=== PATIENT | female | born 1980 | race Caucasian/White ===

== ENCOUNTER 2019-12-30 13:42 | Emergency (ER) | payer OTHER, SELFPAY ==
[2019-12-30 13:50] VITALS: BP 110/63; PULSE 105; RESP 14; TEMP 36.8; O2SAT 99
--- NOTE | 2019-12-30 13:53 | ED.URI ---
HPI - URI/Sore Throat General Chief Complaint: Upper Respiratory Infection Stated Complaint: chest discomfort/fever/sore throat Time Seen by Provider: 12/30/19 14:15 Source: patient and RN notes reviewed Limitations: no limitations History of Present Illness HPI Narrative: This is a 39 years old female presented office for evaluation of cough for 5 days.Cough is very troublesome, associated with high fever at night, body ache,Stuffy nose and sore throat.She has been taking Mucinex for her symptoms with no relief. She is smoke a pack a day. Related Data Home Medications Medication Instructions Recorded Confirmed buprenorphine-naloxone [Suboxone] 1 film BUCCAL DAILY 11/23/19 12/30/19 omeprazole 20 mg PO DAILY 11/23/19 12/30/19 sertraline 100 mg PO DAILY 11/23/19 12/30/19 trazodone 100 mg PO HS PRN 11/23/19 12/30/19 Allergies Allergy/AdvReac Type Severity Reaction Status Date / Time Penicillins Allergy Unknown Unknown Verified 12/30/19 14:03 Review of Systems Review of Systems: Narrative: CONSTITUTIONAL:Reports fever, achy EYES: Denies visual changes ENT: Reports rhinorrhea, congestion, sore throat. Denies otalgia. CARDIOVASCULAR: Denies chest pain RESPIRATORY: Reports cough with chest tightness. GASTROINTESTINAL: Denies abdominal pain, nausea, vomiting, diarrhea. GENITOURINARY: Denies urinary symptoms SKIN: Denies rash MUSCULOSKELETAL: Denies acute back pain, joint pain, or myalgia. NEUROLOGIC: Denies numbness, or focal weakness. [facility] Past Medical History Medical History (Updated 12/30/19 @ 14:31 by FAUSTINO Julian) Anxiety and depression HLD (hyperlipidemia) HTN (hypertension) Inguinal hernia Surgical History Surgical History (Updated 12/30/19 @ 13:55 by FAUSTINO Julian) Hx of tubal ligation Social History Social History (Updated 12/30/19 @ 14:29 by FAUSTINO Julian) Smoking packs per day: 1 Smoking cigarettes per day: 20.0 Smoking status: Current every day smoker Comments At time of signature, I agree with nursing past medical, surgical, social and family history. There is no relevant family history pertinent to the presenting complaint. Exam Narrative: Exam Narrative: GENERAL: This is a well-nourished, well-developed patient, in no apparent distress. EYES: Sclera clear/white. Vision is grossly intact. EARS: External ears normal, auditory canals clear and without drainage, TMs normal without perforation. Hearing grossly intact. NOSE: External nose normal with no obvious nasal discharge, nares without redness, no rhinorrhea. THROAT: Mucous membranes moist, posterior pharynx clear. NECK: Neck supple, non-tender without lymphadenopathy, masses or thyromegaly. CARDIOVASCULAR: Regular rate and rhythm without murmurs, gallops, or rubs. RESPIRATORY: Diminished breath sounds noted throughout, with cough noted during inspiration and expiration. Breath sounds equal bilaterally. No wheezes, rales, or rhonchi. GASTROINTESTINAL: Abdomen soft, non-tender, nondistended. Bowel sounds are active. No hepato-splenomegaly, or palpable masses. No guarding. SKIN: warm, intact with no suspicious lesions or rash, good texture and turgor. NEURO: awake, alert, and oriented to person, place and time. There were no obvious focal neurologic abnormalities. Steady gait Mine Coma Scale Eye Opening: Spontaneous 4 Mine Coma Scale Motor: Obeys Commands 6 Bond Coma Scale Verbal: Oriented 5 Course Vital Signs Vital signs: Vital Signs Temperature 98.2 F 12/30/19 13:50 Pulse Rate 105 H 12/30/19 13:50 Respiratory Rate 14 12/30/19 13:50 Blood Pressure 110/63 12/30/19 13:50 Pulse Oximetry 99 12/30/19 13:50 Temperature 98.2 F 12/30/19 13:50 Pulse Rate 105 H 12/30/19 13:50 Respiratory Rate 14 12/30/19 13:50 Blood Pressure 110/63 12/30/19 13:50 Pulse Oximetry 99 12/30/19 13:50 MDM - URI/Sore Throat MDM Narrative Medical decision making narrative: Discharg
== END 2019-12-30 14:37 | disposition home or self-care (01) ==
PROVIDERS: Emergency Provider Nurse Practitioner
DX: J06.9 Acute upper respiratory infection, unspecified (principal); R05 Cough; F41.9 Anxiety disorder, unspecified; E78.5 Hyperlipidemia, unspecified; I10 Essential (primary) hypertension; F17.290 Nicotine dependence, other tobacco product, uncomplicated
CPT/HCPCS: 99213; G0463

== ENCOUNTER 2020-01-28 15:02 | Emergency (ER) | payer OTHER, SELFPAY ==
[2020-01-28 15:34] VITALS: BP 118/82; PULSE 96; RESP 16; TEMP 36.6; O2SAT 99
--- NOTE | 2020-01-28 16:38 | ED.GENADULT ---
HPI - General Adult General Chief complaint: Wound/Laceration Stated complaint: injury Time Seen by Provider: 01/28/20 16:38 Source: patient Mode of arrival: ambulatory Limitations: no limitations History of Present Illness HPI narrative: 39-year-old female patient presents to the [facility] with complaints of a laceration to the left fourth finger that occurred approximately 12 noon today. Patient states that she cut it on a coffee cup today. Patient unsure of when her last tetanus shot was. Denies any numbness or tingling to the fingertip. Related Data Home Medications Medication Instructions Recorded Confirmed buprenorphine-naloxone [Suboxone] 1 film BUCCAL DAILY 11/23/19 01/28/20 omeprazole 20 mg PO DAILY 11/23/19 01/28/20 sertraline 100 mg PO DAILY 11/23/19 01/28/20 trazodone 100 mg PO HS PRN 11/23/19 01/28/20 albuterol sulfate [ProAir HFA] 1 puff INHALATION Q4-6H PRN 01/28/20 Allergies Allergy/AdvReac Type Severity Reaction Status Date / Time Penicillins Allergy Unknown Unknown Verified 12/30/19 14:03 Review of Systems Review of Systems: Narrative: CONSTITUTIONAL: Denies fever, chills, or sweats. EYES: Denies visual changes, redness, or discharge. ENT: Denies rhinorrhea, congestion, sore throat, or otalgia. CARDIOVASCULAR: Denies chest pain, palpitations, or edema. RESPIRATORY: Denies cough or dyspnea. GASTROINTESTINAL: Denies abdominal pain, nausea, vomiting, or diarrhea. GENITOURINARY: Denies dysuria or hematuria. SKIN: Denies rash or itching. Positive laceration to left fourth finger MUSCULOSKELETAL: Denies back pain, joint pain, or myalgia. NEUROLOGIC: Denies headache, numbness, or weakness. PSYCHIATRIC: Denies anxiety or depression. [facility] Past Medical History Medical History Anxiety and depression HLD (hyperlipidemia) HTN (hypertension) Inguinal hernia Surgical History Surgical History Hx of tubal ligation Social History Social History Smoking packs per day: 1 Smoking cigarettes per day: 20.0 Smoking status: Current every day smoker Comments At the time of my signature I agree with nursing past medical history, surgical, social, and family history. There is no relevant family history pertinent to the presenting complaint. Exam Narrative: Exam Narrative: GENERAL: Well-appearing, well-nourished, and in no acute distress. HEAD: Normocephalic, atraumatic. EYES: PERRLA and EOMI. ENT: Nares clear, no rhinorrhea or epistaxis. Mucous membranes moist. NECK: Supple. No lymphadenopathy CHEST: Clear to auscultation. No respiratory distress. HEART: Regular rate and rhythm. No murmur heard. Normal peripheral pulses. ABDOMEN: Soft, nontender, nondistended, normal active bowel sounds. EXTREMITIES: Normal range of motion. No edema. SKIN: Warm, dry, no rash. Patient has slight avulsion/laceration noted to the left fourth finger over the lateral side of the PIP joint. Bleeding is controlled at this time. Patient does have excellent range of motion to the finger with good sensation. NEURO: No focal deficits. Alert and oriented x3. Course Vital Signs Vital signs: Vital Signs Temperature 36.6 C 01/28/20 15:34 Pulse Rate 96 01/28/20 15:34 Respiratory Rate 16 01/28/20 15:34 Blood Pressure 118/82 01/28/20 15:34 Pulse Oximetry 99 01/28/20 15:34 Temperature 36.6 C 01/28/20 15:34 Pulse Rate 96 01/28/20 15:34 Respiratory Rate 16 01/28/20 15:34 Blood Pressure 118/82 01/28/20 15:34 Pulse Oximetry 99 01/28/20 15:34 Vital signs reviewed. Procedures Laceration Laceration 1: Date: 01/28/20 Time: 16:43 Site: hand (Fourth finger) Side (If applicable): left Size (cm): 2 Description: flap Depth: simple, single layer Local Anesthetic: lidocaine 1% Am
[2020-01-28] MEDS: TETANUS,DIPHTHERIA,AC PERTUSSIS ADULT 0.5 ML (ADACEL) IM (17:15)
== END 2020-01-28 17:32 | disposition home or self-care (01) ==
PROVIDERS: Emergency Provider Nurse Practitioner Family
DX: S61.215A Laceration without foreign body of left ring finger without damage to nail, initial encounter (principal); W26.8XXA Contact with other sharp object(s), not elsewhere classified, initial encounter; Z23 Encounter for immunization; F17.210 Nicotine dependence, cigarettes, uncomplicated; F41.9 Anxiety disorder, unspecified; F32.9 Major depressive disorder, single episode, unspecified; E78.5 Hyperlipidemia, unspecified; I10 Essential (primary) hypertension
CPT/HCPCS: 12001; 90471; 90715; 99213; G0463

== ENCOUNTER 2020-05-30 19:37 | Emergency (ER) | payer OTHER, SELFPAY ==
[2020-05-30 19:40] VITALS: BP 123/79; PULSE 100; RESP 16; TEMP 36.9; O2SAT 100
--- NOTE | 2020-05-30 19:51 | ED.BACK ---
HPI - Back Pain/Injury General Chief Complaint: Back Pain/Injury Stated Complaint: back pain Time Seen by Provider: 05/30/20 19:51 Source: patient Mode of arrival: ambulatory Limitations: no limitations History of Present Illness HPI Narrative: Geeta Tabares is a 39 yo female with a H opiate addiction who comes to [facility] for mid thoracic right back pain. Neck pain started 2 weeks ago when helping her toilet while they are remodeling her house and has had issues with pain since then. Over the weekend is gotten much worse she says she has a knot in her right thoracic area that makes it difficult for her to sit up or lay down. 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 EYES: Denies visual changes, redness, discharge. ENT: Denies rhinorrhea, congestion, sore throat, otalgia. CARDIOVASCULAR: Denies chest pain, palpitations, edema. RESPIRATORY: Denies dyspnea, wheezing, cough GASTROINTESTINAL: Denies abdominal pain, nausea, vomiting, diarrhea. GENITOURINARY: Denies dysuria, hematuria, abnormal discharge SKIN: Denies rash or itching. NEUROLOGIC: Denies numbness, or focal weakness. PSYCHIATRIC: Denies anxiety or depression. Right-sided thoracic back PMFSH Past Medical History Medical History Anxiety and depression HLD (hyperlipidemia) HTN (hypertension) Inguinal hernia Opiate addiction Surgical History Surgical History Hx of tubal ligation Family History Family History Other Heart disease Hypertension Social History Social History Smoking packs per day: 1 Smoking cigarettes per day: 20.0 Smoking status: Current every day smoker Comments At time of signature, I agree with nursing past medical, surgical, social and family history. There is no relevant family history pertinent to the presenting complaint. Exam Narrative: Exam Narrative: GENERAL: This is a well-nourished, well-developed patient, in mild distress. HEAD: normocephalic, atraumatic. EYES: PERRL. Sclera clear/white. Vision is grossly intact. EARS: External ears normal,. Hearing grossly intact. NOSE: External nose normal without nasal discharge, nares without redness, no rhinorrhea. THROAT: Mucous membranes moist, NECK: Neck supple, non-tender CARDIOVASCULAR: Regular rate and rhythm without murmurs, gallops, or rubs. RESPIRATORY: Clear to auscultation. Breath sounds equal bilaterally. No wheezes, rales, or rhonchi. GASTROINTESTINAL: Abdomen soft,, SKIN: warm, intact with no suspicious lesions or rash, good texture and turgor. NEURO: awake, alert, and oriented to person, place and time. There were no obvious focal neurologic abnormalities. Steady gait EXTREMITIES: Normal range of motion. Able to lift arms but pain with twisting or movement forward BACK:tender without deformity-spasm below right scapula Course Course Emergency Course: Started on baclofen and prednisone Work note for in the morning Follow-up with PCP Vital Signs Vital signs: Vital Signs Temperature 98.5 F 05/30/20 19:40 Pulse Rate 100 05/30/20 19:40 Respiratory Rate 16 05/30/20 19:40 Blood Pressure 123/79 05/30/20 19:40 Pulse Oximetry 100 05/30/20 19:4
== END 2020-05-30 20:08 | disposition home or self-care (01) ==
PROVIDERS: Emergency Provider Nurse Practitioner; PCP Internal Medicine
DX: M54.6 Pain in thoracic spine (principal); F17.210 Nicotine dependence, cigarettes, uncomplicated; F41.9 Anxiety disorder, unspecified; F32.9 Major depressive disorder, single episode, unspecified; E78.5 Hyperlipidemia, unspecified; I10 Essential (primary) hypertension
CPT/HCPCS: 99213; G0463

== ENCOUNTER 2020-06-03 15:24 | Emergency (ER) | payer OTHER, SELFPAY ==
--- NOTE | ~2020-06-03 | XR_ITS ---
EXAMINATION: XR shoulder RT min 2V DATE: 06/03/2020 16:23 INDICATION: Right shoulder pain. TECHNIQUE: 4 views of right shoulder were obtained. COMPARISON: None. FINDINGS: Bone alignment is normal. No fracture. Joint spaces are well maintained. IMPRESSION: 1. Normal right shoulder. Reviewed, dictated and finalized at location A. IMPRESSION: 1. Normal right shoulder.
--- NOTE | 2020-06-03 15:36 | ED.BACK ---
HPI - Back Pain/Injury General Chief Complaint: Back Pain/Injury Stated Complaint: back pain Time Seen by Provider: 06/03/20 15:45 Source: patient Mode of arrival: ambulatory Limitations: no limitations History of Present Illness HPI Narrative: Geeta Tabares is a 39 yo female with a PMH of opiate addiction now on suboxone who returns now for R idurated area that is below the area treated on Sunday for R thoracic muscle spasm. Was given baclofen and medrol dose pack then but states that this area is lower and did not discuss on last visit. Is here for additional treatment and Xray of R shoulder. Original injury was two and a half weeks ago while carrying a toilet while helping remodel at home. 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 Related Data Home Medications Medication Instructions Recorded Confirmed buprenorphine-naloxone [Suboxone] 1 film BUCCAL DAILY 11/23/19 06/03/20 omeprazole 20 mg PO DAILY 11/23/19 06/03/20 sertraline 100 mg PO DAILY 11/23/19 06/03/20 trazodone 100 mg PO HS PRN 11/23/19 06/03/20 Allergies Allergy/AdvReac Type Severity Reaction Status Date / Time Penicillins Allergy Unknown Unknown Verified 06/03/20 16:01 Review of Systems Review of Systems: Narrative: CONSTITUTIONAL: Denies fever, chills, sweats. EYES: Denies visual changes, redness, discharge. ENT: Denies rhinorrhea, congestion, sore throat, otalgia. CARDIOVASCULAR: Denies chest pain, palpitations, edema. RESPIRATORY: Denies dyspnea, wheezing, cough GASTROINTESTINAL: Denies abdominal pain, nausea, vomiting, diarrhea. GENITOURINARY: Denies dysuria, hematuria, abnormal discharge SKIN: Denies rash or itching. States she has area on the lower right side that is indurated NEUROLOGIC: Denies numbness, or focal weakness. PSYCHIATRIC: Denies anxiety or depression. Right upper thoracic back pain PMFSH Social History Social History Smoking packs per day: 1 Smoking cigarettes per day: 20.0 Smoking status: Current every day smoker Other substance usage details: Currently on Suboxone Living arrangements: with family Comments At time of signature, I agree with nursing past medical, surgical, social and family history. There is no relevant family history pertinent to the presenting complaint. Exam Narrative: Exam Narrative: GENERAL: This is a well-nourished, well-developed patient, affect is abnormal, skin is pale. HEAD: normocephalic, atraumatic. EYES: Sclera clear/white. Vision is grossly intact. EARS: External ears normal, Hearing grossly intact. NOSE: External nose normal without nasal discharge, nares without redness, no rhinorrhea. THROAT: Mucous membranes moist, NECK: Neck supple, CARDIOVASCULAR: Tachycardic rate and rhythm without murmurs, gallops, or rubs. RESPIRATORY: Clear to auscultation. Breath sounds equal bilaterally. No wheezes, rales, or rhonchi. GASTROINTESTINAL: Abdomen soft, SKIN: warm, intact - large 5 x 5 erythematous area central thoracic right. No fluctuance.very tender NEURO: awake, alert, and oriented to person, place and time. There were no obvious focal neurologic abnormalities. Steady gait EXTREMITIES: Normal range of motion. BACK: tender upper R back without deformity Course Course Emergency Course: Patient requested x-ray of R shoulder- Xray results: normal shoulder Xray Patient has erythematous indurated cyst on back-location is more central and lower than her complaint of pain a few days ago-inserted a needle into cyst after cleaning and got bloody return. Discussed using lidocaine and a scalpel to try to open area and patient refused. She states she wants only antibiotics. We discussed treatment with heat and antibiotics that might help resolve inflamed but ultimately will probably need to be incised and drained. She does not want that done at this time. Referred back to her primary physician again, to follow-up on progress for both R shoulde
[2020-06-03 15:38] VITALS: BP 121/75; PULSE 113; RESP 20; TEMP 37.2; O2SAT 100
[2020-06-03 16:30] VITALS: BP 133/73; PULSE 73; RESP 16; TEMP 37; O2SAT 100
== END 2020-06-03 16:50 | disposition home or self-care (01) ==
PROVIDERS: Emergency Provider Nurse Practitioner; PCP Internal Medicine
DX: M54.6 Pain in thoracic spine (principal); F17.210 Nicotine dependence, cigarettes, uncomplicated; E78.00 Pure hypercholesterolemia, unspecified; I10 Essential (primary) hypertension; F41.9 Anxiety disorder, unspecified; F32.9 Major depressive disorder, single episode, unspecified
CPT/HCPCS: 73030; 99213; G0463

== ENCOUNTER 2020-07-20 19:27 | Emergency (ER) | payer OTHER, SELFPAY ==
--- NOTE | ~2020-07-20 | XR_ITS ---
EXAMINATION: XR chest 2V 07/20/2020 19:51 INDICATION: Shortness of breath. Wheezing and cough. PROCEDURE: 2 view chest COMPARISON: No prior studies for comparison. FINDINGS: The lungs are clear. The cardiomediastinal silhouette is within normal limits. There are no pleural effusions. There is no pneumothorax suspected. There is dextroscoliosis of the thoracic spine. IMPRESSION: 1: NO ACUTE CARDIOPULMONARY DISEASE. Reviewed, dictated and finalized at location A.
--- NOTE | 2020-07-20 19:29 | ED.GENADULT ---
HPI - General Adult General Chief complaint: Upper Respiratory Infection Stated complaint: shortness breath/wheezing Time Seen by Provider: 07/20/20 19:28 Source: patient Mode of arrival: ambulatory Limitations: no limitations History of Present Illness HPI narrative: 39-year-old female patient presents to the [facility] with complaints of cough and shortness of breath for the past 2 days. Patient states she is also been having shortness of breath at rest as well as with exertion. Patient also states that her bilateral lower extremities have been swelling as well. Patient does admit to smoking cigarettes. Denies any fevers, body aches or chills. Patient states that she gets tested often for COVID at her work and was tested Sunday and it came back negative yesterday. Patient does have a history of PE and drug abuse before in the past. Related Data Home Medications Medication Instructions Recorded Confirmed buprenorphine-naloxone [Suboxone] 1 film BUCCAL DAILY 11/23/19 07/20/20 omeprazole 20 mg PO DAILY 11/23/19 07/20/20 sertraline 100 mg PO DAILY 11/23/19 07/20/20 trazodone 100 mg PO HS PRN 11/23/19 07/20/20 Allergies Allergy/AdvReac Type Severity Reaction Status Date / Time Penicillins Allergy Unknown Unknown Verified 07/20/20 19:42 Review of Systems Review of Systems: Narrative: CONSTITUTIONAL: Denies fever, chills, or sweats. EYES: Denies visual changes, redness, or discharge. ENT: Denies rhinorrhea, congestion, sore throat, or otalgia. CARDIOVASCULAR: Denies chest pain, palpitations, or edema. RESPIRATORY: Positive cough with dyspnea. GASTROINTESTINAL: Denies abdominal pain, nausea, vomiting, or diarrhea. GENITOURINARY: Denies dysuria or hematuria. SKIN: Denies rash or itching. MUSCULOSKELETAL: Denies back pain, joint pain, or myalgia. Positive swelling to bilateral lower extremities NEUROLOGIC: Denies headache, numbness, or weakness. PSYCHIATRIC: Denies anxiety or depression. [facility] Past Medical History Medical History (Updated 07/20/20 @ 20:10 by FAUSTINO Lopez) Anxiety and depression Hiatal hernia HLD (hyperlipidemia) HTN (hypertension) Inguinal hernia Opiate addiction Pulmonary embolism Surgical History Surgical History Hx of tubal ligation Family History Family History Other Heart disease Hypertension Social History Social History Smoking packs per day: 1 Smoking cigarettes per day: 20.0 Smoking status: Current every day smoker Other substance usage details: Currently on Suboxone Comments At the time of my signature I agree with nursing past medical history, surgical, social, and family history. There is no relevant family history pertinent to the presenting complaint. Exam Narrative: Exam Narrative: GENERAL: Well-appearing, well-nourished, and in no acute distress. HEAD: Normocephalic, atraumatic. EYES: PERRLA and EOMI. ENT: Nares clear, no rhinorrhea or epistaxis. Mucous membranes moist. Bilateral TMs are clear with no erythema or foreign bodies to the canal. NECK: Supple. No lymphadenopathy CHEST: Patient has inspiratory wheezing noted to the left upper and left lower lobe on auscultation. No respiratory distress. Patient able talk in clear complete sentences. No active tripoding noted at this time. HEART: Regular rate and rhythm. No murmur heard. Normal peripheral pulses. ABDOMEN: Soft, nontender, nondistended, normal active bowel sounds. EXTREMITIES: Normal range of motion. Patient has about 2+ pitting edema noted to bilateral lower extremities.. SKIN: Warm, dry, no rash. NEURO: No focal deficits. Alert and oriented x3. Course Reevaluation(s) Reevaluation #1: Reevaluated patient after her x-ray and EKG had resulted. Discussed with her that her x-ray is clear however I am concerned about her EKG. Dis
[2020-07-20 19:36] VITALS: BP 109/66; PULSE 102; RESP 20; TEMP 36.7; O2SAT 98
--- NOTE | 2020-07-20 20:05 | ECG_ITS ---
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
== END 2020-07-20 20:15 | disposition home or self-care (01) ==
PROVIDERS: Emergency Provider Nurse Practitioner Family; PCP Internal Medicine
DX: J06.9 Acute upper respiratory infection, unspecified (principal); R05 Cough; R06.02 Shortness of breath; R94.31 Abnormal electrocardiogram [ECG] [EKG]; F17.210 Nicotine dependence, cigarettes, uncomplicated; F41.9 Anxiety disorder, unspecified; F32.9 Major depressive disorder, single episode, unspecified; E78.5 Hyperlipidemia, unspecified; I10 Essential (primary) hypertension; Z86.711 Personal history of pulmonary embolism
CPT/HCPCS: 71046; 93005; 99213; G0463

== ENCOUNTER 2021-08-20 13:15 | Emergency (ER) | payer OTHER, SELFPAY ==
[2021-08-20 13:25] VITALS: PULSE 92; RESP 14; TEMP 36.5; O2SAT 97
[2021-08-20 13:34] VITALS: PULSE 92; RESP 14; TEMP 36.5; O2SAT 97
--- NOTE | 2021-08-20 14:18 | ED.ABDPAIN ---
HPI - Abdominal Pain General Chief Complaint: Urogenital-Female Stated Complaint: Bladder complaint Time Seen by Provider: 08/20/21 14:06 Source: patient and RN notes reviewed Mode of arrival: ambulatory Limitations: no limitations History of Present Illness HPI narrative: Patient presents today complaining of right lower quadrant abdominal pain that was present when she woke up this morning. Pain radiates to her right flank. She also reports a fever of 99.2 this morning. Currently rates her abdominal pain 5/10 and took some Azo and Excedrin without relief. 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 Denies fever, nausea, vomiting, diarrhea, constipation, or any urinary symptoms. MD elicited complaint: abdominal pain Related Data Home Medications Medication Instructions Recorded Confirmed buprenorphine-naloxone [Suboxone] 1 film BUCCAL DAILY 11/23/19 08/20/21 omeprazole 20 mg PO DAILY 11/23/19 08/20/21 sertraline 100 mg PO DAILY 11/23/19 08/20/21 trazodone 100 mg PO HS PRN 11/23/19 08/20/21 buspirone 5 mg PO DAILY 08/20/21 08/20/21 famotidine 40 mg PO DAILY 08/20/21 08/20/21 furosemide 40 mg PO DAILY 08/20/21 08/20/21 Allergies Allergy/AdvReac Type Severity Reaction Status Date / Time Penicillins Allergy Unknown Unknown Verified 08/20/21 13:30 Review of Systems Review of Systems: CONSTITUTIONAL: Denies body aches, fever, chills, or sweats. EYES: Denies visual changes, redness, or discharge. ENT: Denies rhinorrhea, congestion, sore throat, or otalgia. CARDIOVASCULAR: Denies chest pain, palpitations, or edema. RESPIRATORY: Denies cough or dyspnea. GASTROINTESTINAL: Denies nausea, vomiting, or diarrhea.+ Abdominal pain GENITOURINARY: Denies dysuria or hematuria. SKIN: Denies rash, itching, or wounds. MUSCULOSKELETAL: Denies back pain, joint pain, or myalgia. NEUROLOGIC: Denies headache, numbness, tingling, or weakness. PSYCH: Denies depression or anxiety. [facility] Past Medical History Medical History Anxiety and depression Hiatal hernia HLD (hyperlipidemia) HTN (hypertension) Inguinal hernia Opiate addiction Pulmonary embolism Surgical History Surgical History Hx of tubal ligation Family History Family History Other Heart disease Hypertension Social History Social History Smoking packs per day: 1 Smoking cigarettes per day: 20.0 Smoking status: Current every day smoker Other substance usage details: Currently on Suboxone Comments At time of signature, I have reviewed and agree with nursing past medical, surgical, social and family history unless otherwise noted. Please see nursing chart for further information. There is no relevant family history pertinent to the presenting complaint Exam Narrative: GENERAL: Well-appearing, well-nourished, and in no acute distress. HEAD: Normocephalic, atraumatic. EYES: EOMI. No redness or drainage. Conjunctivae normal. ENT: Mucous membranes pink and moist. NECK: Normal AROM. CHEST: No respiratory distress. Clear to auscultation. HEART: Regular rate and rhythm. No murmur appreciated. Normal peripheral pulses. ABDOMEN: Soft, nondistended, normal active bowel sounds. + Right lower quadrant abdominal tenderness with rebound.+ Heel jar. -CVAT MUSCULOSKELETAL: No bony tenderness. EXTREMITIES: Normal range of motion. No edema. SKIN: Warm, dry, no rash. Capillary refill normal. Normal skin turgor. NEURO: No focal deficits. Alert and oriented x3. Gait steady. PSYCH: Normal affect. No signs of depression or anxiety. Course Vital Signs Vital signs: Vital Signs Temperature 97.7 F 08/20/21 13:25 Pulse Rate 92 08/20/21 13:25 Respiratory Rate 14 08/20/21 13:25 Pulse
== END 2021-08-20 14:25 | disposition short-term general hospital (02) ==
PROVIDERS: Emergency Provider Nurse Practitioner; PCP Nurse Practitioner Family
DX: R10.31 Right lower quadrant pain (principal); I10 Essential (primary) hypertension; E78.5 Hyperlipidemia, unspecified; F17.210 Nicotine dependence, cigarettes, uncomplicated; F41.9 Anxiety disorder, unspecified; F32.9 Major depressive disorder, single episode, unspecified
CPT/HCPCS: 81003; 99213; G0463

== ENCOUNTER 2021-09-07 15:02 | Emergency (ER) | payer OTHER, SELFPAY ==
--- NOTE | ~2021-09-07 | XR_ITS ---
XR wrist RT min 3V DATE: 09/07/2021 15:18 INDICATION: Fall forward on outstretched hand. TECHNIQUE: 4 views COMPARISON: None FINDINGS: No fracture or dislocation, periosteal reaction or bone destruction. Joint spaces are preserved. No erosive change or chondrocalcinosis. IMPRESSION: Negative Reviewed, dictated and finalized at location B. IMPRESSION: Negative
[2021-09-07 15:08] VITALS: BP 117/81; PULSE 89; RESP 16; TEMP 36.4; O2SAT 100
--- NOTE | 2021-09-07 15:08 | ED.UPPEXIN ---
HPI - Extremity Injury (Upper) General Chief Complaint: Extremity Problem,Nontraumatic Stated Complaint: right wrist injury Time Seen by Provider: 09/07/21 15:08 Source: patient and RN notes reviewed History of Present Illness HPI narrative: Patient is a 40-year-old female who presents the urgent care with complaints of a right wrist injury with pain. Patient states that approximately 1 week ago she fell, slipping in the rain, ground-level fall catching herself out right. Patient denies of other injuries from the fall. States that she has been taking Excedrin for the pain and using an Nathan wrap. No other acute complaints. No acute distress noted. Patient aware of the plan of care. Some parts of this dictation were generated by voice recognition software and may contain typographical and/or grammatical inaccuracies. Related Data Home Medications Medication Instructions Recorded Confirmed buprenorphine-naloxone [Suboxone] 1 film BUCCAL DAILY 11/23/19 08/20/21 omeprazole 20 mg PO DAILY 11/23/19 08/20/21 sertraline 100 mg PO DAILY 11/23/19 08/20/21 trazodone 100 mg PO HS PRN 11/23/19 08/20/21 buspirone 5 mg PO DAILY 08/20/21 08/20/21 famotidine 40 mg PO DAILY 08/20/21 08/20/21 furosemide 40 mg PO DAILY 08/20/21 08/20/21 Allergies Allergy/AdvReac Type Severity Reaction Status Date / Time Penicillins Allergy Unknown Unknown Verified 08/20/21 13:30 Review of Systems Review of Systems: CONSTITUTIONAL: Denies fever, chills, or sweats. EYES: Denies visual changes, redness, or discharge. ENT: Denies rhinorrhea, congestion, sore throat, or otalgia. CARDIOVASCULAR: Denies chest pain, palpitations, or edema. RESPIRATORY: Denies cough or dyspnea. GASTROINTESTINAL: Denies abdominal pain, nausea, vomiting, or diarrhea. GENITOURINARY: Denies dysuria or hematuria. SKIN: Denies rash or itching. MUSCULOSKELETAL: Reports of right wrist pain NEUROLOGIC: Denies headache, numbness, or weakness. All other systems reviewed are negative, except as documented in HPI. [facility] Past Medical History Medical History Anxiety and depression Hiatal hernia HLD (hyperlipidemia) HTN (hypertension) Inguinal hernia Opiate addiction Pulmonary embolism Surgical History Surgical History Hx of tubal ligation Family History Family History Other Heart disease Hypertension Social History Social History Smoking packs per day: 1 Smoking cigarettes per day: 20.0 Smoking status: Current every day smoker Other substance usage details: Currently on Suboxone Comments At the time of my signature, I reviewed and agree with the nursing past medical, surgical, social, and family history. There is no relevant family history pertinent to the patient complaint. Exam Narrative: GENERAL: This is a well-nourished, well-developed patient, in no apparent distress. HEAD: normocephalic, atraumatic. EYES: PERRL. Sclera clear/white. Vision is grossly intact. EARS: External ears normal NOSE: External nose normal with no obvious nasal discharge, nares without redness, no rhinorrhea. THROAT: Mucous membranes moist NECK: Neck supple CARDIOVASCULAR: Regular rate and rhythm without murmurs, gallops, or rubs. RESPIRATORY: Clear to auscultation. Breath sounds equal bilaterally. No wheezes, rales, or rhonchi. SKIN: warm, intact with no suspicious lesions or rash, good texture and turgor. NEURO: awake, alert, and oriented to person, place and time. There were no obvious focal neurologic abnormalities. EXTREMITIES: No obvious deformity or fracture noted to the right wrist/right upper extremity. Positive strong right radial pulse with capillary refill less than 2 seconds. Mild tenderness to the right radius. Range of motion to right
--- NOTE | 2021-09-07 15:20 | PC.NURSE ---
PT DECLINED ICE FOR COMFORT
== END 2021-09-07 15:44 | disposition home or self-care (01) ==
PROVIDERS: Emergency Provider Nurse Practitioner Family; PCP Nurse Practitioner Family
DX: S63.501A Unspecified sprain of right wrist, initial encounter (principal); W01.0XXA Fall on same level from slipping, tripping and stumbling without subsequent striking against object, initial encounter; E78.5 Hyperlipidemia, unspecified; I10 Essential (primary) hypertension; Z86.711 Personal history of pulmonary embolism; F41.9 Anxiety disorder, unspecified; F32.9 Major depressive disorder, single episode, unspecified
CPT/HCPCS: 73110; 99213; G0463

== ENCOUNTER 2022-03-13 17:53 | Emergency (ER) | payer OTHER, SELFPAY ==
[2022-03-13 17:58] VITALS: BP 124/81; PULSE 95; RESP 20; TEMP 36.5; O2SAT 97
--- NOTE | 2022-03-13 18:13 | ED.SKABFB ---
HPI - Skin/Abscess/Foreign Bdy General Chief complaint: Skin/Abscess/Foreign Body Stated complaint: Skin Sore Time Seen by Provider: 03/13/22 18:00 Source: patient Mode of arrival: ambulatory Limitations: no limitations History of Present Illness HPI narrative: Ms. Tabares is a 41-year-old female patient presenting to the clinic today with complaint of possible abscess to the left upper lateral thigh. She reports that she first noticed this approximately 3 days ago and it has gradually gotten more painful and red. Denies any known insect bite or injury to the area. She denies any history of MRSA or staph infection. Denies any fever or chills. Related Data Home Medications Medication Instructions Recorded Confirmed omeprazole 40 mg PO DAILY 11/23/19 03/13/22 sertraline 100 mg PO DAILY 11/23/19 03/13/22 trazodone 100 mg PO HS PRN 11/23/19 03/13/22 buspirone 10 mg PO DAILY 08/20/21 03/13/22 famotidine 40 mg PO DAILY 08/20/21 03/13/22 furosemide 40 mg PO DAILY 08/20/21 03/13/22 atorvastatin 20 mg PO DAILY 03/13/22 03/13/22 ezetimibe 10 mg PO DAILY 03/13/22 03/13/22 Allergies Allergy/AdvReac Type Severity Reaction Status Date / Time Penicillins Allergy Unknown Rash Verified 03/13/22 18:12 Review of Systems Review of Systems: Pertinent positives per HPI. Patient denies any fever, chills, rash, headache, visual changes, dizziness, cough, runny nose, sore throat, shortness of breath, chest pain, palpitations, nausea, vomiting, diarrhea, constipation, abdominal pain, or any urinary issues. [facility] Past Medical History Medical History Anxiety and depression Hiatal hernia HLD (hyperlipidemia) HTN (hypertension) Inguinal hernia Opiate addiction Pulmonary embolism Surgical History Surgical History Hx of tubal ligation Family History Family History Other Heart disease Hypertension Social History Social History Smoking packs per day: 1 Smoking cigarettes per day: 20.0 Smoking status: Current every day smoker Other substance usage details: Currently on Suboxone Comments At the time of my signature, I reviewed and agree with the nursing past medical, surgical, social, and family history. There is no relevant family history pertinent to the patient complaint. Exam Narrative: General: Well-developed, well nourished, in no apparent distress Head: Normocephalic, atraumatic. Cardio: Regular rate and rhythm, s1 and s2 normal, no murmur appreciated. Resp: Clear to auscultation bilaterally, no rhonchi, rales, wheezing or rubs. Integumentary: Sayner, warm, and dry, 4 cm x 3 cm indurated nonfluctuant abscess to the left upper lateral thigh. Tender to palpation with mild erythema. Scabbed area to the center of the abscess that is not draining. Course Course Emergency Course: Portions of this record may have been created with voice recognition software. Level of Care: Express Care Visit Vital Signs Vital signs: Vital Signs Temperature 36.5 C 03/13/22 17:58 Pulse Rate 95 03/13/22 17:58 Respiratory Rate 20 03/13/22 17:58 Blood Pressure 124/81 03/13/22 17:58 Pulse Oximetry 97 03/13/22 17:58 Temperature 36.5 C 03/13/22 17:58 Pulse Rate 95 03/13/22 17:58 Respiratory Rate 20 03/13/22 17:58 Blood Pressure 124/81 03/13/22 17:58 Pulse Oximetry 97 03/13/22 17:58 Vital signs reviewed MDM - Skin/Abscess/Foreign Bdy MDM Narrative Medical decision making narrative: At the time of visit patient is resting comfortably on the exam table. She has a 3 x 4 cm abscess that is nonfluctuant to the left lateral upper thigh. I suspect a staph or MRSA infection and we will treat her with a prescription of Bactrim as well as give her a prescription for
== END 2022-03-13 18:30 | disposition home or self-care (01) ==
PROVIDERS: Emergency Provider Nurse Practitioner Family
DX: L02.416 Cutaneous abscess of left lower limb (principal); F17.210 Nicotine dependence, cigarettes, uncomplicated; E78.5 Hyperlipidemia, unspecified; I10 Essential (primary) hypertension; Z86.711 Personal history of pulmonary embolism; F41.9 Anxiety disorder, unspecified; F32.A Depression, unspecified
CPT/HCPCS: 99213; G0463

== ENCOUNTER 2023-01-17 13:23 | Emergency (ER) | payer OTHER, SELFPAY ==
[2023-01-17 13:28] VITALS: BP 138/91; PULSE 100; RESP 16; TEMP 36.4; O2SAT 100
--- NOTE | 2023-01-17 13:28 | ED.GENADULT ---
HPI - General Adult General Chief complaint: Upper Respiratory Infection Stated complaint: Cold Symptoms Source: patient and RN notes reviewed History of Present Illness HPI narrative: 42-year-old female presents urgent care with complaints of congestion, facial pressure, and intermittent headaches. Patient states in the going on since Sunday. Patient denies any fevers, chills, ear pain sore throat, chest pain, shortness of breath, or vomiting. Patient states she attempted taking DayQuil without any relief. Some parts of this dictation were generated by voice recognition software and may contain typographical and/or grammatical inaccuracies. Related Data Home Medications Medication Instructions Recorded Confirmed omeprazole 20 mg capsule,delayed 40 mg PO DAILY 11/23/19 01/17/23 release sertraline 100 mg tablet 100 mg PO DAILY 11/23/19 01/17/23 trazodone 100 mg tablet 100 mg PO HS PRN SLEEP 11/23/19 01/17/23 buspirone 5 mg tablet 10 mg PO DAILY 08/20/21 01/17/23 famotidine 40 mg tablet 40 mg PO DAILY 08/20/21 01/17/23 furosemide 40 mg tablet 40 mg PO DAILY 08/20/21 01/17/23 atorvastatin 20 mg tablet 20 mg PO DAILY 03/13/22 01/17/23 ezetimibe 10 mg tablet 10 mg PO DAILY 03/13/22 01/17/23 Allergies Allergy/AdvReac Type Severity Reaction Status Date / Time Penicillins Allergy Unknown Rash Verified 01/17/23 13:44 Review of Systems Review of Systems: CONSTITUTIONAL: Denies fever, chills, or sweats. EYES: Denies visual changes, redness, or discharge. ENT: Congestion CARDIOVASCULAR: Denies chest pain, palpitations, or edema. RESPIRATORY: Denies cough or dyspnea. GASTROINTESTINAL: Denies abdominal pain, nausea, vomiting, or diarrhea. GENITOURINARY: Denies dysuria or hematuria. SKIN: Denies rash or itching. MUSCULOSKELETAL: Denies back pain, joint pain, or myalgia. NEUROLOGIC: Reports intermittent headache PMFSH Past Medical History Medical History Anxiety and depression Hiatal hernia HLD (hyperlipidemia) HTN (hypertension) Inguinal hernia Opiate addiction Pulmonary embolism Surgical History Surgical History Hx of tubal ligation Family History Family History Other Heart disease Hypertension Social History Social History Smoking packs per day: 1 Smoking cigarettes per day: 20.0 Smoking status: Current every day smoker Other substance usage details: Currently on Suboxone Living arrangements: with family Comments At the time of my signature, I reviewed and agree with the nursing past medical, surgical, social, and family history. There is no relevant family history pertinent to the patient complaint. Exam Narrative: GENERAL: This is a well-nourished, well-developed patient, in no apparent distress. HEAD: normocephalic, atraumatic. EYES: PERRL. Sclera clear/white. Vision is grossly intact. EARS: External ears normal, auditory canals clear and without drainage, TMs normal without perforation. Hearing grossly intact. NOSE: External nose normal with no obvious nasal discharge, congestion. THROAT: Mucous membranes moist, posterior pharynx clear. NECK: Neck supple, non-tender without lymphadenopathy, masses or thyromegaly. CARDIOVASCULAR: Regular rate and rhythm without murmurs, gallops, or rubs. RESPIRATORY: Clear to auscultation. Breath sounds equal bilaterally. No wheezes, rales, or rhonchi. GASTROINTESTINAL: Abdomen soft, non-tender, nondistended. Bowel sounds are active. No hepato-splenomegaly, or palpable masses. No guarding. SKIN: warm, intact with no suspicious lesions or rash, good texture and turgor. NEURO: awake, alert, and oriented to person, place and time. There were no obvious focal neurologic abnormalities. EXTREMITIES: No clubbing, cyanosis, o
== END 2023-01-17 13:54 | disposition home or self-care (01) ==
PROVIDERS: Emergency Provider Nurse Practitioner Family; PCP Nurse Practitioner Family
DX: J06.9 Acute upper respiratory infection, unspecified (principal); F17.210 Nicotine dependence, cigarettes, uncomplicated; E78.5 Hyperlipidemia, unspecified; I10 Essential (primary) hypertension; Z86.711 Personal history of pulmonary embolism; F41.9 Anxiety disorder, unspecified; F32.A Depression, unspecified
CPT/HCPCS: 99213; G0463

== ENCOUNTER 2025-03-23 16:51 | Emergency (ER) | payer OTHER, SELFPAY ==
[2025-03-23 16:56] VITALS: BP 147/99; PULSE 101; RESP 16; TEMP 36.9; O2SAT 98
--- NOTE | 2025-03-23 16:57 | ED_ITS ---
HPI - Back Pain/Injury General Chief Complaint: Back Pain/Injury Stated Complaint: back injury Time Seen by Provider: 03/23/25 17:03 Source: patient, RN notes reviewed and old records reviewed Mode of arrival: ambulatory Limitations: no limitations History of Present Illness HPI Narrative: 44-year-old female presents to the [facility] with complaints of back pain. 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 Denies any numbness or tingling. No saddle anesthesia. Walks with a normal gait. Related Data Home Medications ?Medication ?Instructions ?Recorded ?Confirmed ?Last Taken ?Type sertraline 100 mg tablet 100 mg PO DAILY 11/23/19 01/17/23 Unknown History buprenorphine 8 mg-naloxone 2 mg film 03/23/25 Unknown History sublingual film Allergies Allergy/AdvReac Type Severity Reaction Status Date / Time Penicillins Allergy Unknown Rash Verified 03/23/25 17:02 Review of Systems Review of Systems: All systems reviewed & are unremarkable except as noted in HPI and below Constitutional: Constitutional: Reports no additional constitutional comp laints ENT: Reports system reviewed and no additional complaints, except as documented Cardiovascular: Cardiovascular: Reports no additional cardiovascular complaints, Denies chest pain and Denies dyspnea Respiratory: Respiratory: Reports no additional respiratory complaints, Denies chest congestion, Denies cough and Denies dyspnea Musculoskeletal: Musculoskeletal: Reports as per HPI Integumentary/Breasts: Skin/Breast: Reports system reviewed and no additional complaints, except as docu PMFSH Past Medical History Medical History Anxiety and depression Hiatal hernia HLD (hyperlipidemia) HTN (hypertension) Inguinal hernia Opiate addiction Pulmonary embolism Surgical History Surgical History Hx of tubal ligation Family History Family History Other Heart disease Hypertension Social History Social History Smoking packs per day: 1 Smoking cigarettes per day: 20.0 Smoking status: Current every day smoker Other substance usage details: Currently on Suboxone Living arrangements: with family Comments At the time of my signature, I reviewed and agree with the nursing past medical, surgical, social, and family history. There is no relevant family history pertinent to the patient complaint. Exam Const: General: cooperative, healthy appearing, comfortable, no acute distress, well developed, alert and well nourished Nutritional Appearance: well nourished and obese Orientation/consciousness: patient oriented x3 Limitations: no limitations HENMT: Head: normal to inspection Eyes: General: appearance normal, both eyes and all related structures Alignment and Position: alignment normal Neck: Neck: normal visual inspection, full ROM, no lymphadenopathy and no meningeal signs Chest: Chest palpation & inspection: normal inspection of the chest Resp: Effort & Inspection: normal respiratory effort and able to speak in complete sentences Auscultation: clear to auscultation bilaterally, no crackles, no rales, no rhonchi and no wheezes Cardio: Rate: regular rate Back/Spine/Pelvis: Back: No ecchymosis and back tenderness (Lower lumbar bilateral) Cervical Spine: normal cervical lordosis and cervical ROM normal Thoracic/Lumbar Spine: thoraco-lumbar ROM normal, No thoracic spinal tenderness and No lumbar spinal tenderness Pelvis: no pain with anterior-posterior compression and no pain with lateral compression Skin: General skin exam: normal color and no rashes or lesions noted Neuro: General: patient oriented x3, gait normal, moves all extremities and no meningeal signs Cognition (Neuro): normal cognition Speech: normal speech Gait exam (Neuro): Normal gait present Extrem: General: normal to inspection, full ROM, capillary refill normal and normal gait Psych: Appearance: grossly normal and well kempt Mental Status: mental status grossly normal Speech and movement: Normal speech and movement present and Clear speech present Affect: normal affect Attitude: cooperative Course Course Level of Care: Express Care Visit Vital Signs Vital signs: Vital Signs Temperature 98.4 F 03/23/25 16:56 Pulse Rate 101 H 03/23/25 16:56 Respiratory Rate 16 03/23/25 16:56 Blood Pressure 147/99 H 03/23/25 16:56 Pulse Oximetry 98 03/23/25 16:56 Oxygen Delivery Room Air 03/23/25 16:56 Temperature 98.4 F 03/23/25 16:56 Pulse Rate 101 H 03/23/25 16:56 Respiratory Rate 16 03/23/25 16:56 Blood Pressure 147/99 H 03/23/25 16:56 Pulse Oximetry 98 03/23/25 16:56 Oxygen Delivery Room Air 03/23/25 16:56 Reviewed MDM - Back Pain/Injury MDM Narrative Medical decision making narrative: Patient sitting comfortably in exam room. Patient is nontoxic, vitals are stable except blood pressure mildly elevated. Patient presents with 10 day history of low back pain. No loss retention bowel bladder. No midline tenderness. Pain is worse with changing of positions Patient appropriate for outpatient treatment and follow-up Discharge instructions reviewed with patient, as well as provided in writing per nursing staff. The instructions also include specific and strict return/GO TO THE ER as well as f/u information. All questions have been answered, and the patient deny any further questions with discharge and discharge plan. Some parts of this dictation were generated by voice recognition software and may contain typographical and/or grammatical inaccuracies. Differential Diagnosis Differential diagnosis: Likely lumbar radiculopathy and strain of lumbar region Critical Care Time Critical Care Time Critical Care Time: No Discharge Plan Discharge Clinical Impression: Strain of lumbar region Patient Disposition: Home Condition: Stable Instructions: Antibiotic Form, Low Back Strain (ED), Lower Back Exercises (ED) Additional Instructions: Take ibuprofen as directed to decrease inflammation and to help pain. Take Baclofen (muscle relaxer) as directed. Do not drink, drive, operate machinery, or do anything dangerous while taking this medication Exercise:Combine aerobic exercise, like walking or swimming, with specific exercises to keep the muscles in your back and abdomen strong and flexible. Proper Lifting:Be sure to lift heavy items with your legs, not your back. Do not bend over to pick something up. Keep your back straight and bend at your knees. Weight:Maintain a healthy weight. Being overweight puts added stress on your lower back. Avoid Smoking:Both the smoke and the nicotine cause your spine to age faster than normal. Proper Posture:Good posture is important for avoiding future problems. A therapist can teach you how to safely stand, sit, and lift. Use warm moist heat to help with pain. Using topical such as Biofreeze, Richard-Patel or Aspercreme can also help Follow up with Primary provider in 2-3 days, This may become a chronic condition and they will be the one to help manage your pain and order additional testing. Go to the nearest ER if you develop problems with bladder/bowel function, weakness or loss of feeling in one or both of your legs. 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
--- OUTSIDE RECORDS SUMMARY | 2025-03-23 18:27 | XMS_ITS | Clinical Summary ---
Author Organization [facility] Address [address] [place] [address] Phone Care Team Providers Care Database Marketing Manager Name Role Phone Amie Page KARELY, ELISEO Primary Care Provider Allergies Active Allergy Reactions Criticality Noted Date Comments Penicillins Rash 12/10/2017 Medications Sertraline HCl (ZOLOFT PO) Take 150 mg by mouth daily. Active TRAZODONE HCL PO Take 200 mg by mouth nightly as needed. Active Buprenorphine HCl-Naloxone HCl (SUBOXONE) 8-2 MG FILM 1 Strip by Sublingual route daily. Active omeprazole (PriLOSEC) 20 MG CAPSULE DELAYED RELEASEIndicati ons:Duodenal ulcer Take 1 Cap by mouth 2 times daily. 180 Cap Active Additional Information Patient taking differently: 40 mgOral 2 TIMES DAILY, Reported on 02/15/2021 FeroSul 325 (65 Fe) MG Tablet daily. Active furosemide (LASIX) 40 MG Tablet furosemide 40 mg tablet TAKE 1 TABLET EVERY DAY BY ORAL ROUTE. Active famotidine (PEPCID) 40 MG Tablet daily. Active Active Problems Problem Noted Date Diagnosed Date Personal history of gastric ulcer 2020 Immunizations Immunization Administration Dates Next Due Covid-19, Mrna, Lnp-s, Pf, 3 0 Mcg/0.3 Ml Dose ([employer]) 10/26/2021 DTP Vaccine 03/16/1987, 3,06/22/1982,1981,02/25/1982 Influenza, Injectable, Quadrivalent 03/2018,09/12/2017,10/11/2016,2014 Influenza, Seasonal, Injecta ble, Undefined 12/10/2013 MMR Vaccine 07/13/1992,04/18/1983 OPV 03/16/1987, 5,10/18/1983,1981,04/22/1982 TDAP Vaccine 01/28/2020,03/26/2017 Family History Medical History Relation Name Comments Heart Attack Father Cancer Mother thyroid Cancer Paternal Uncle No Known Problems Sister Relation Name Status Comments Father Mother Alive Paternal Uncle Sister Alive Social History Tobacco Use Types Packs/Day Years Used Date Smoking Tobacco: Every Day Cigarettes 1 20 Smokeless Tobacco: Never Tobacco Cessation:Ready to Q uit: Yes; Counseling Given: Yes Alcohol Use Standard Drinks/Week Comments Not Currently 0 (1 standard drink = 0.6 oz pur e alcohol) none Sexually Active Control Partners Comments Yes Comments No Sex and Gender Information Value Date Recorded Sex Assigned at Not on file Legal Sex Female 2:16 PM BUSINESS SYSTEM 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 Gender Identity Not on file Sexual Orientation Not on file 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 Not on file Not on file Not on file Last Filed Vital Signs Vital Sign Reading Time Taken Comments Blood Pressure 112/70 2020 9:28 AM BUSINESS SYSTEM CONSULTANT Pulse 96 2020 9:28 AM BUSINESS SYSTEM CONSULTANT Temperature 35.9 C (96.7 F) 2020 9:28 AM BUSINESS SYSTEM CONSULTANT Respiratory Rate 18 2020 9:28 AM BUSINESS SYSTEM CONSULTANT Oxygen Saturation 94% 2020 9:28 AM BUSINESS SYSTEM CONSULTANT Inhaled Oxygen Concentration - - Weight 90.3 kg (199 lb) 02/15/2021 7:00 AM CDT Height 162.6 cm (5' 4 ) 02/15/2021 7:00 AM CDT Body Mass Index 34.16 02/15/2021 7:00 AM CDT Plan of Treatment Health Maintenance Due Date Last Done Comments Hepatitis C Virus (HCV) Screening 1981 Mammogram 1981 Hepatitis B Immunization (1 of 3 - 19+ 3-dose series) 2000 Pap Smear 2002 Cervical Cancer Screening (CCS) 2011 HPV/Cotest 2011 Discussion re Starting/Frequency of Mammograms 2021 Influenza Immunization (#1) 2024 12/0 03/2018, 09/12/2017, 10/11/2016, Additional history exists SARS-COV-2 Immunization ( season) 2024 10/26/2021, 02/04/2021, 01/14/2021 DTaP/Tdap/Td Immunization (8 - Td or Tdap) 01/27/2030 01/28/2020, 03/26/2017, 03/16/1987, Additional history exists Respiratory Syncytial Virus (RSV) Immunization (Adult) (1 - 1-dose 75+ series) 2056 Meningococcal Immunization (ACWY) Aged Out No longer eligible based on patient's age to complete this topic Pneumococcal Immunization Combined Aged Out No longer eligible based on patient's age to complete this topic Rotavirus Immunization Aged Out No lo nger eligible based on patient's age to complete this topic Insurance [id number] MEDICAID [place] Care Teams Database Marketing Manager Relationship Specialty Start Date End Date Amie Page, BIT WELDER, LEGAL SPECIALIST [address] [place] [address] PCP - General Family Medicine 12/01/20
== END 2025-03-23 17:14 | disposition home or self-care (01) ==
PROVIDERS: Emergency Provider Nurse Practitioner
DX: S39.012A Strain of muscle, fascia and tendon of lower back, initial encounter (principal); X50.0XXA Overexertion from strenuous movement or load, initial encounter; Y99.0 Civilian activity done for income or pay; F17.210 Nicotine dependence, cigarettes, uncomplicated; I10 Essential (primary) hypertension; E78.5 Hyperlipidemia, unspecified; Z86.711 Personal history of pulmonary embolism; F41.9 Anxiety disorder, unspecified; F32.A Depression, unspecified
CPT/HCPCS: 99213; G0463

== ENCOUNTER 2025-07-04 14:08 | Emergency (ER) | payer OTHER, SELFPAY ==
--- OUTSIDE RECORDS SUMMARY | 2025-07-04 14:10 | XMS_ITS | Clinical Summary ---
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 Not on file Not on file Not on file Last Filed Vital Signs Vital Sign Reading Time Taken Comments Blood Pressure 112/70 2020 9:28 AM GRILL ASSOCIATE Pulse 96 2020 9:28 AM GRILL ASSOCIATE Temperature 35.9 C (96.7 F) 2020 9:28 AM GRILL ASSOCIATE Respiratory Rate 18 2020 9:28 AM GRILL ASSOCIATE Oxygen Saturation 94% 2020 9:28 AM GRILL ASSOCIATE Inhaled Oxygen Concentration - - Weight 90.3 kg (199 lb) 02/15/2021 7:00 AM CDT Height 162.6 cm (5' 4) 02/15/2021 7:00 AM CDT Body Mass Index 34.16 02/15/2021 7:00 AM CDT Plan of Treatment Health Maintenance Due Date Last Done Comments Hepatitis C Virus (HCV) Screening 1981 Hepatitis B Immunization (1 of 3 - 19+ 3-dose series) 2000 Pap Smear 2002 Human Papillomavirus (HPV) Immunization (1 - 3-dose SCDM series) 2008 Cervical Cancer Screening (CCS) 2011 HPV/Cotest 2011 SARS-COV-2 Immunization ( season) 2024 10/26/2021, 02/04/2021, 01/14/2021 Influenza Immunization (#1) 2025 12/0 03/2018, 09/12/2017, 10/11/2016, Additional history exists DTaP/Tdap/Td Immunization (8 - Td or Tdap) [...] patient's age to complete this topic Insurance [id number] MEDICAID [place] Care Teams Public Health Veterinarian Relationship Specialty Start Date End Date Amie Page, ENROLLER, DOG LICENSE OFFICER SUPERVISOR [address] [place] [address] PCP - General Family Medicine 12/01/20
[2025-07-04 14:18] VITALS: BP 125/81; PULSE 85; RESP 20; TEMP 36.3; O2SAT 98
--- NOTE | 2025-07-04 14:36 | ED_ITS ---
HPI - Skin/Abscess/Foreign Bdy General Chief complaint: Skin/Abscess/Foreign Body Stated complaint: cyst on chest Time Seen by Provider: 07/04/25 14:25 Source: patient Mode of arrival: ambulatory Limitations: no limitations History of Present Illness HPI narrative: Kinsey is a 44-year-old female patient presenting to the clinic today with complaints of a sore to the mid chest in between her breast x3 days. She reports she had squeezed blood out of it last night. Area continues to become more swollen, red, and painful. She denies any fevers, chills, body aches. Rates pain 07/05. Had tried applying some warm compresses to the area. No history of MRSA. Denies fevers, chills, body aches. Related Data Home Medications ?Medication ?Instructions ?Recorded ?Confirmed ?Last Taken ?Type sertraline 100 mg tablet 100 mg PO DAILY 11/23/19 01/17/23 Unknown History buprenorphine 8 mg-naloxone 2 mg film 03/23/25 Unknown History sublingual film Allergies Allergy/AdvReac Type Severity Reaction Status Date / Time Penicillins Allergy Unknown Rash Verified 07/04/25 14:16 Review of Systems Review of Systems: Pertinent positives per HPI. Patient denies any fever, chills, rash, headache, visual changes, dizziness, cough, runny nose, sore throat, shortness of breath, chest pain, palpitations, nausea, vomiting, diarrhea, constipation, abdominal pain, or any urinary issues. COUNT INCLUDES THE [facility] Past Medical History Medical History Anxiety and depression Hiatal hernia HLD (hyperlipidemia) HTN (hypertension) Inguinal hernia Opiate addiction Pulmonary embolism Surgical History Surgical History Hx of tubal ligation Family History Family History Other Heart disease Hypertension Social History Social History Smoking packs per day: 1 Smoking cigarettes per day: 20.0 Smoking status: Current every day smoker Other substance usage details: Currently on Suboxone Living arrangements: with family Comments At the time of my signature, I reviewed and agree with the nursing past medical, surgical, social, and family history. There is no relevant family history pertinent to the patient complaint. Exam Narrative: General: Well-developed, well nourished, in no apparent distress Head: Normocephalic, atraumatic. Cardio: Regular rate and rhythm, s1 and s2 normal, no murmur appreciated. Resp: Clear to auscultation bilaterally, no rhonchi, rales, wheezing or rubs. Integumentary: [place], warm, and dry, 5 cm x 5 cm indurated firm abscess to the chest wall in between bilateral breast, no fluctuance palpable, mild erythema, ttp Course Course Emergency Course: Portions of this record may have been created with voice recognition software. Level of Care: Express Care Visit Vital Signs Vital signs: Vital Signs Temperature 36.3 C L 07/04/25 14:18 Pulse Rate 85 07/04/25 14:18 Respiratory Rate 20 07/04/25 14:18 Blood Pressure 125/81 07/04/25 14:18 Pulse Oximetry 98 07/04/25 14:18 Oxygen Delivery Room Air 07/04/25 14:18 Temperature 36.3 C L 07/04/25 14:18 Pulse Rate 85 07/04/25 14:18 Respiratory Rate 20 07/04/25 14:18 Blood Pressure 125/81 07/04/25 14:18 Pulse Oximetry 98 07/04/25 14:18 Oxygen Delivery Room Air 07/04/25 14:18 Vital signs reviewed MDM - Skin/Abscess/Foreign Bdy MDM Narrative Medical decision making narrative: At the time of visit patient is resting comfortably on the exam table. Patient appears to be nontoxic. Complaints of a sore to the mid chest in between her breast x3 days. She reports she had squeezed blood out of it last night. Area continues to become more swollen, red, and painful. She denies any fevers, chills, body aches. Rates pain 8/10. Had tried applying some warm compresses to the area. No history of MRSA. Denies fevers, chills, body aches. Offer to attempt incision and drainage to see if there is any exudate that can be expressed in obtain wound culture. Patient declined incision and drainage at this time and would like to try oral antibiotics and continue doing warm compresses to bring abscess to head. Recommend returning to the clinical going to the emergency room if he feels as though his needing drained. Plan: I suspect patient has a skin abscess to the mid chest wall between breast. Patient declined incision and drainage at this time. Prescription for clindamycin was sent to the pharmacy Supportive measures were discussed with the patient and they voiced understanding discharge instructions and agrees to treatment plan. Return precautions reviewed Differential Diagnosis Differential diagnosis: Likely abscess of skin or subcutaneous tissue, viral exanthem, dermatophytosis, urticaria, herpes zoster, allergic reaction to drug, cellulitis, eczema, insect bites, impetigo and contact dermatitis Discharge Plan Discharge Clinical Impression: Abscess of skin or subcutaneous tissue Qualifiers: Site of cutaneous abscess: trunk Site of cutaneous abscess of trunk: chest wall Qualified Code(s): L02.213 - Cutaneous abscess of chest wall Patient Disposition: Home Condition: Stable Instructions: Antibiotic Form, Abscess (ED) Additional Instructions: May return to the clinic or go to the emergency room if area becomes fluctuant and is needing drained. Apply warm moist heat to the area 6 times daily for 15 minutes at a time May take Tylenol 1000 mg and 600 of ibuprofen by mouth every 8 hours for pain Take clindamycin as prescribed Go to the emergency room if you develop worsening of symptoms-fever not controlled by Tylenol or Motrin, increase in pain, increase in swelling, increase in redness, streaking, or purulent discharge Patient Language: Divehi Prescriptions: New clindamycin HCl [Cleocin HCl] 300 mg capsule 300 mg PO BID 10 Days Qty: 20 0RF No Action buprenorphine-naloxone 8-2 mg film sertraline 100 mg Tablet 100 mg PO DAILY Follow-up/Referrals: PHYSICIAN,RECORDING STUDIO INTERN [Primary Care Provider] - Stand Alone Forms: Work/School Release IP Time of Disposition: 14:38 Quality NIHSS Nursing Documentation ED NIHSS nursing documentation: reviewed/agree
== END 2025-07-04 14:42 | disposition home or self-care (01) ==
PROVIDERS: Emergency Provider Nurse Practitioner Family
DX: L02.213 Cutaneous abscess of chest wall (principal); F17.210 Nicotine dependence, cigarettes, uncomplicated; I10 Essential (primary) hypertension; E78.5 Hyperlipidemia, unspecified; F41.9 Anxiety disorder, unspecified; F32.A Depression, unspecified; Z86.711 Personal history of pulmonary embolism
CPT/HCPCS: 99213; G0463